=== PATIENT | female | born 1980 | race Two or more races ===

== ENCOUNTER 2022-02-24 16:12 | Inpatient (IN) | payer BC ==
[~2022-02-24] VITALS: Ht 157.5 cm; Wt 60.3 kg
--- NOTE | 2022-02-24 16:13 | NUR ---
BIB BOYFRIEND C/O SHAKINESS AND ANXIETY. HAD ACTIVE SEIZURE IN THE WAITING ROOM WHILE REGISTRATION. SAFETY MEASURES APPLIED WHILE HAVING SEIZURES. PLACED IN [facility], PLACED TO ROOM 11. IV PERIPHERAL STARTED AT RAC 20G. RECEIVED VERBAL ORDER FROM DR HERNANDEZ FOR ATIVAN 2MG IVP. CARRIED OUT. 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
[2022-02-24] MEDS ORDERED: LORAZEPAM INJ 2 MG/ML VIAL ONE (16:16)
[2022-02-24] MEDS ORDERED: IV NS 0.9% 1,000 ML BAG IV ONE (16:30)
[2022-02-24] MEDS ORDERED: LORAZEPAM INJ 2 MG/ML VIAL IV ONE (16:30)
[2022-02-24 16:56] LABS: BASOPHILS # (AUTO) 0.1 K/uL (0.0-0.2); BASOPHILS % (AUTO) 1.3 % (0.0-2.0); EOSINOPHILS % (AUTO) 0.5 % (0.0-6.0); HEMATOCRIT 38 % (33-45); LYMPHOCYTES # (AUTO) 1.2 K/uL (0.8-4.8); LYMPHOCYTES % (AUTO) 13.5 % (20.0-44.0); MEAN CORPUSCULAR HGB CONC 32 g/dl (31.0-36.0); MEAN CORPUSCULAR VOLUME 97 fL (82-100); MONOCYTES # (AUTO) 0.8 K/uL (0.1-1.30); MONOCYTES % (AUTO) 8.4 % (2.0-12.0); NEUTROPHILS # (AUTO) 6.8 K/uL (1.8-8.9); NEUTROPHILS % (AUTO) 76.3 % (43.0-81.0); PLATELET COUNT (AUTO) 164 K/uL (150-450); RED BLOOD CELL COUNT(AUTO) 3.92 MIL/uL (4.0-5.2); WHITE BLOOD COUNT (AUTO) 8.9 K/uL (4.3-11.0)
[2022-02-24 17:08] LABS: CALCIUM, SERUM 8.6 mg/dL (8.5-10.1); CARBON DIOXIDE 13 mmol/L (21-32); CHLORIDE 97 mmol/L (98-107); CREATININE 1.3 mg/dL (0.6-1.3); GLUCOSE 134 mg/dL (74-106); POTASSIUM 3.8 mmol/L (3.5-5.1); SODIUM SERUM 136 mmol/L (136-145); UREA NITROGEN, BLOOD 7 mg/dL (7-18)
[2022-02-24 17:19] LABS: ALANINE AMINOTRANSFERASE 129 U/L (12-78); ALBUMIN 4.1 g/dL (3.4-5.0); ALKALINE PHOSPHATASE 85 U/L (46-116); ASPARTATE AMINOTRANSFERASE 223 U/L (15-37); BILIRUBIN,DIRECT 0.3 mg/dL (0.0-0.2); BILIRUBIN,TOTAL 0.9 mg/dL (0.2-1.0); TOTAL PROTEIN, SERUM 7.8 g/dL (6.4-8.2)
[2022-02-24 17:25] LABS: ALCOHOL, BLOOD < 3 mg/dL (0-0)
--- NOTE | 2022-02-24 17:35 | NUR ---
URINE COLLECTED AND SENT TO LAB
--- NOTE | 2022-02-24 17:58 | NUR ---
PT IN BED AWAKE AND VERBALLY RESPONSIVE. PT'S SIGNIFICANT OTHER AND MOTHER AT BEDSIDE W/ PT.
--- NOTE | 2022-02-24 18:23 | NUR ---
COVID SWAB COLLECTED AND SENT TO LAB.
[2022-02-24] MEDS ORDERED: ONDANSETRON HCL/PF 4 MG/2 ML VIAL IVP PRN (20:30)
[2022-02-24] MEDS ORDERED: MAG HYDROX/AL HYDROX/SIMETH 30 ML UDC PO PRN (20:30)
[2022-02-24] MEDS ORDERED: ACETAMINOPHEN 325 MG TABLET PO PRN (20:30)
[2022-02-24] MEDS ORDERED: ENOXAPARIN SODIUM 40 MG/0.4 ML DISP.SYRIN SQ ONE (21:36)
[2022-02-24] MEDS ORDERED: CHLORDIAZEPOXIDE HCL 25 MG CAPSULE ONE (21:36)
[2022-02-24] MEDS: CHLORDIAZEPOXIDE HCL 25 MG CAPSULE PO SCH (21:42)
[2022-02-24] MEDS: ENOXAPARIN SODIUM 40 MG/0.4 ML DISP.SYRIN SQ SCH (21:43)
[2022-02-24] MEDS: IV NS 0.9% 1,000 ML IV PRN (22:00)
--- NOTE | 2022-02-25 02:51 | NUR ---
PT SLEEPING COMFORTABLY BREATHING EVEN AND UNLABORED. REMAINS ON MONITOR AND V/S WNL.
[2022-02-25] MEDS ORDERED: CHLORDIAZEPOXIDE HCL 25 MG CAPSULE ONE (05:15)
[2022-02-25] MEDS: CHLORDIAZEPOXIDE HCL 25 MG CAPSULE PO SCH ×3 (05:20→21:08)
--- NOTE | 2022-02-25 05:38 | NUR ---
room assignment: [id number] after [id number]
[2022-02-25 06:22] LABS: CALCIUM, SERUM 7.9 mg/dL (8.5-10.1); CREATININE 0.8 mg/dL (0.6-1.3); POTASSIUM 3.2 mmol/L (3.5-5.1)
[2022-02-25 06:30] LABS: ALBUMIN 3.1 g/dL (3.4-5.0); BILIRUBIN,DIRECT 0.4 mg/dL (0.0-0.2); BILIRUBIN,TOTAL 1.1 mg/dL (0.2-1.0); TOTAL PROTEIN, SERUM 6.1 g/dL (6.4-8.2)
[2022-02-25 06:41] LABS: BASOPHILS # (AUTO) 0.1 K/uL (0.0-0.2); BASOPHILS % (AUTO) 1.4 % (0.0-2.0); EOSINOPHILS % (AUTO) 1.4 % (0.0-6.0); HEMATOCRIT 33 % (33-45); HEMOGLOBIN 10.7 g/dL (11.5-14.8); LYMPHOCYTES # (AUTO) 1.4 K/uL (0.8-4.8); LYMPHOCYTES % (AUTO) 23.1 % (20.0-44.0); MEAN CORPUSCULAR HGB CONC 33 g/dl (31.0-36.0); MEAN CORPUSCULAR VOLUME 95 fL (82-100); MONOCYTES # (AUTO) 0.7 K/uL (0.1-1.30); MONOCYTES % (AUTO) 10.5 % (2.0-12.0); NEUTROPHILS % (AUTO) 63.6 % (43.0-81.0); PLATELET COUNT (AUTO) 127 K/uL (150-450); RED BLOOD CELL COUNT(AUTO) 3.45 MIL/uL (4.0-5.2); WHITE BLOOD COUNT (AUTO) 6.3 K/uL (4.3-11.0)
[2022-02-25] MEDS ORDERED: LORAZEPAM INJ 2 MG/ML VIAL IV PRN (07:00)
--- NOTE | 2022-02-25 08:04 | NUR ---
REPORT GIVEN TO EMILY FOR MERCEDEZ
--- NOTE | 2022-02-25 08:14 | NUR ---
PT TRANSFERRED TO [facility] VIA [facility]
[2022-02-25 09:00] VITALS: BP 130/78
--- NOTE | 2022-02-25 09:00 | NUR ---
RN open note Patient was transferred from the ED with primary diagnosis of Seizures.Patient is alert , oriented times 3, on room air , breathing non labored , has IV access on RAC 20 g, no sighs of distress.Skin is intact , Patient ambulates to the restroom . Bed is at the lowest position , call light within reach, will continue to provide intervention and observation according to POC.
[2022-02-25] MEDS: POTASSIUM CHLORIDE 20 MEQ TAB.PRT.SR PO SCH ×2 (10:28→11:31)
[2022-02-25 12:00] VITALS: BP 107/80
[2022-02-25] MEDS: SERTRALINE HCL 25 MG TABLET PO SCH (12:53)
[2022-02-25 16:00] VITALS: BP 112/79
[2022-02-25] MEDS: IV NS 0.9% 1,000 ML IV PRN (18:23)
--- NOTE | 2022-02-25 18:51 | NUR ---
RN CLOSING NOTE PATIENT IS IN BED , ALERT , ORIENTED TIMES 3 .HAS IV ACCESS OF THE RAC WITH NS RUNNING @ 125 ML/HR . PATIENT IS AMBULATORY , SKIN INTACT NO OPEN WOUNDS , ON ROOM AIR , BREATHING NON LABORED , NO SIGHS OF DIGRESS.ALL MEDICATIONS WERE ADMINISTERED , ALL NEEDS WERE MET . BED IS AT LOWEST POSITION , CALL LIGHT WITHIN REACH , WILL ENDORSE TO T5HE SEISMIC PLOTTER.
[2022-02-25 20:00] VITALS: BP 117/57
[2022-02-25] MEDS: ENOXAPARIN SODIUM 40 MG/0.4 ML DISP.SYRIN SQ SCH (21:00)
[2022-02-26] MEDS: CHLORDIAZEPOXIDE HCL 25 MG CAPSULE PO SCH (05:43)
[2022-02-26 06:29] LABS: BASOPHILS # (AUTO) 0.1 K/uL (0.0-0.2); BASOPHILS % (AUTO) 1.1 % (0.0-2.0); EOSINOPHILS % (AUTO) 3.8 % (0.0-6.0); HEMATOCRIT 31 % (33-45); HEMOGLOBIN 10.3 g/dL (11.5-14.8); LYMPHOCYTES # (AUTO) 1.5 K/uL (0.8-4.8); LYMPHOCYTES % (AUTO) 27.6 % (20.0-44.0); MEAN CORPUSCULAR HGB CONC 33 g/dl (31.0-36.0); MEAN CORPUSCULAR VOLUME 96 fL (82-100); MONOCYTES # (AUTO) 0.5 K/uL (0.1-1.30); MONOCYTES % (AUTO) 9.7 % (2.0-12.0); NEUTROPHILS # (AUTO) 3.1 K/uL (1.8-8.9); NEUTROPHILS % (AUTO) 57.8 % (43.0-81.0); PLATELET COUNT (AUTO) 117 K/uL (150-450); RED BLOOD CELL COUNT(AUTO) 3.28 MIL/uL (4.0-5.2); WHITE BLOOD COUNT (AUTO) 5.4 K/uL (4.3-11.0)
[2022-02-26 07:05] LABS: BILIRUBIN,DIRECT 0.2 mg/dL (0.0-0.2); BILIRUBIN,TOTAL 0.7 mg/dL (0.2-1.0); CALCIUM, SERUM 8.1 mg/dL (8.5-10.1); CREATININE 0.7 mg/dL (0.6-1.3); MAGNESIUM 1.8 mg/dL (1.8-2.4); PHOSPHORUS 3.3 mg/dL (2.5-4.9); POTASSIUM 3.6 mmol/L (3.5-5.1)
--- NOTE | 2022-02-26 07:30 | NUR ---
RN CLOSING NOTE PATIENT IS IN BED , ASLEEP EASILY ROUSED, A/O X 3 .HAS IV ACCESS OF THE RAC #20 WITH NS RUNNING @ 125 ML/HR . PATIENT IS AMBULATORY , SKIN INTACT NO OPEN WOUNDS , ON ROOM AIR , BREATHING NON LABORED , NO SIGHS OF DIGRESS.ALL MEDICATIONS WERE ADMINISTERED , ALL NEEDS WERE MET . BED IS AT LOWEST POSITION , CALL LIGHT WITHIN REACH , WILL CONT TO MONITOR. Addendum: 02/27/22 at 0718 by BREANNA MATA RN MS RN OPENING NOTES
[2022-02-26 08:00] VITALS: BP 119/77
--- NOTE | 2022-02-26 11:41 | NUR ---
SS consult: SS Consult requested for illicit drug use. The pt. is a41 -year-old female patient who was admitted to [facility] due to new onset of seizures. Upon SS consult, the pt. is Alert & Oriented x 4 and makes good eye contact. The pt. appears well-groomed with euthymic mood & affect. Pt.s speech is WNL. The pt. remained calm & cooperative throughout interview. Pt. discussed multiple biopsychostressors: moving, tough break up and father having a stroke recently may have all led to her having a "panick attack" and a seizure. RAVINDER explored pt.s mental health Hx. Patient states that her PCP diagnosed her with generalized anxiety and prescribed her Xanax medication. Pt. denies current SI/HI and denies hallucinations. RAVINDER explored pt.s living situation. Per pt. she currently resides at home alone [[address] [facility] [address];[phone]]. Per pt. her boyfriend stays with her at times. RAVINDER explored pt.s drug & ETOH use. Pt. stated she drinks alcohol socially and uses marijuana. Per pt., she never uses cocaine and just used this time because her and her friends were celebrating. Pe pt. she does not believe that drugs or alcohol are a problem for her. Per pt. she is ambulatory and independent with all her ADLs. Per pt. she is employed and does not receive any financial assistance. RAVINDER explored pt.s support system. Pt. her mother, Lauren Ho [phone] is her support system as well as her boyfriend, Jose [phone]. RAVINDER discussed with pt. that she was seen by psychiatrist and pt. stated that psychiatrist recommended Zoloft and pt. states she is open to trying it. Plan: Per pt. she wishes to return home [[address] [facility] [address];[phone]] when ready for discharge. RAVINDER offered pt. addiction resources and pt. accepted them: ADDICTION RESOURCES For Drugs and Alcohol [facility] Referrals For Rehabilitation once sober Address:[address] [place] [address] [facility] [address] [place] [address] Detox/residential [facility] Substance Abuse Helpline ([facility]) Outpatient, residential treatment, recovery support for youth/adults [facility] www.MediasurfacefaERTH [employer] [facility] Teen programs for drug/alcohol education and support Leo Moy Hermon. Program for adults, sliding scale provides support and education [employer] www.Retrevo.meets [place]; Detox/residential treatment programs; transition to sober living [facility] www.cri-help.org [place]; Outpatient and residential treatment programs; transition to sober living [facility] TEL: [phone] [facility] Esdras Cisse; Outpatient education and supportive programs for teens and adults [facility] www.oasiswomensrecst. [facility].org [place]; Residential treatment and work program for females only [facility] www.[facility].org [place]: Outpatient/residential treatment program for teens and young adults [facility] www.[facility].org [place] Detox, inpatient, outpatient for adults and youth [facility], [facility]. [place]; Outpatient programs and referrals to community residential programs. Alcoholics Anonymous -SFV information and meeting and scheduleswww.aa-intergroup.org [place]-Yped-Lcgoipa https://al-anon.org/ [place] support groups for family of alcoholics. Marijuana Anonymous www.madistrict6.org -SFV listing of meetings Narcotics Anonymous www.na.org SOBER LIVING RESOURCES [facility] www.soberhouCoSchedule.Arpeggi A non-profit agency that provides resources to recovery and sober living homes throughout [facility] [place] Mens Sober Living Homes: A Work in Progress, Gaurav [place] [facility], [facility] Maddie Womens Sober Living Homes: [facility] x [phone], [place] Odyssey [facility] Coed Sober Living Homes: [facility] Counseling--Outpatient [facility] [address] jo-[facility] [place] [address] (Specializes in in-depth psychotherapy for emotional distress: anxiety, depression, interpersonal conflicts, life transitions, childhood abuse) [facility] [address] [place] [address] (Assist with solving problem marital difficulties, separation & divorce, aging parents, & grief, chronic & terminal illness) [facility] [address] [place] [address] (Deal with loss & grief, anxiety, marital difficulties) Homebound/Mental Health Services [address] [place] [address] (Provide in-home mental services to people who are incapable of leaving their homes) [facility] Needs of the Elderly Senior Service/Resource Center [address] [place] [address] [facility] [address] [place] [address] Mental Health Services Shawna Villar [address] [place] [address] Services: Outpatient therapy for children, teens, young adults, adults, older adults, and families; Psychiatric services, medication support Psychiatric Outpatient Services [facility] Partial Hospitalization and Intensive Outpatient Program (Managed Care and [place] Only)[address] [facility] [phone] [facility] Partial Hospitalization and Outpatient [id number] [place], [place] [phone] [facility] Center [address] [facility]. [address] [place], [place] [phone] [facility] Partial Hospitalization and Outpatient [id number] [facility] Esdras Cisse, [phone] Crisis and Hotline Telephone Numbers 24-Hour service unless stated [place] Crisis Hotlines: e-vol[facility]Main Line [facility] Mental Health/Crisis Line........[phone] Suicide Prevention Center (24 Hours).......[phone] Suicide Prevention Crisis Center.......[phone] (24 Hours) Assaults Against Women Hotline.........814.968.1650 (24 Hours -- [facility]) Women and Children Crisis Group Home...........[phone] (24 Hours) Child Abuse Hotline............827.722.[address] [facility] (24 Hours)..........[phone] Alcoholics Anonymous (24 Hours)..........[phone] Cocaine Anonymous (24 Hours)............[phone] Narcotics Anonymous (24 Hours)..........[phone] Jennifer Ma [facility] [address] [place] [address]
[2022-02-26 12:00] VITALS: BP 110/74
[2022-02-26] MEDS ORDERED: LEVE500T9 PO (12:48)
[2022-02-26] MEDS: SERTRALINE HCL 25 MG TABLET PO SCH (13:05)
--- NOTE | 2022-02-26 13:30 | NUR ---
RN CLOSING NOTE DISCHARGE ORDER PER MD CARRIED OUT. PT IS STABLE. IV ACCESS DC'D, TELE MONITOR DC'D AND RETURNED TO TECH, DISCHARGE DOCUMENTS AND BELONGINGS LIST SIGNED, PT TEACHING DONE, PT VERBALIZED UNDERSTANDING. PT LEFT WITH MOM VIA PRIVATE CAR.
[2022-02-26] MEDS ORDERED: CHLORDIAZEPOXIDE HCL 25 MG CAPSULE PO SCH (21:00)
== END 2022-02-26 15:00 | disposition home or self-care (01) | DRG 101 ==
LOC: ER 16:24 → TRANSITION 21:01 → TELE 02-25 05:38
PROVIDERS: ADMIT Nurse Practitioner Acute Care; ATTEND Student in an Organized Health Care Education/Training Program
DX: G40.509 Epileptic seizures related to external causes, not intractable, without status epilepticus (principal); F10.239 Alcohol dependence with withdrawal, unspecified; E87.2 Acidosis; F13.20 Sedative, hypnotic or anxiolytic dependence, uncomplicated; F33.9 Major depressive disorder, recurrent, unspecified; R74.01 Elevation of levels of liver transaminase levels; Z20.822 Contact with and (suspected) exposure to COVID-19; I10 Essential (primary) hypertension; Y90.0 Blood alcohol level of less than 20 mg/100 ml; R00.0 Tachycardia, unspecified; K76.1 Chronic passive congestion of liver; F12.10 Cannabis abuse, uncomplicated; F14.10 Cocaine abuse, uncomplicated; F41.0 Panic disorder [episodic paroxysmal anxiety]; K76.0 Fatty (change of) liver, not elsewhere classified; Z82.3 Family history of stroke
CPT/HCPCS: 36415; 70450-TC; 71045-TC; 76705-TC; 80048-TC; 80061-TC; 80076-TC; 82962-TC; 83605-TC; 83735-TC; 84100-TC; 84703-TC; 85025-TC; 85730-TC; 87081-TC; 93307-TC; 95819-TC; C9803; G0378; G0480; J1650; J2060; J2405; J7030